=== PATIENT | male | born 1975 | race Caucasian/White ===

== ENCOUNTER 2021-03-05 15:55 | Inpatient (IN) | payer OTHER, SELFPAY ==
[2021-03-05 16:19] VITALS: BP 135/99; PULSE 118; RESP 18; TEMP 36.7; O2SAT 98; BMI 29.7
--- NOTE | 2021-03-05 16:47 | ED.PSYCH ---
HPI - Psych General Chief Complaint: Psychiatric Symptoms <FLOYD Dacosta Last Filed: 03/05/21 17:53> Stated Complaint: crisis <FLOYD Dacosta Last Filed: 03/05/21 17:53> Time Seen by Provider: 03/05/21 16:46 <FLOYD Dacosta Last Filed: 03/05/21 17:53> Source: patient <FLOYD Dacosta Last Filed: 03/05/21 17:53> Mode of arrival: ambulatory <FLOYD Dacosta Last Filed: 03/05/21 17:53> History of Present Illness HPI Narrative: 45-year-old male with a past medical history of diabetes, presenting to the ED complaining of increased depression, visual and auditory hallucinations x a couple weeks. Admits has been medication noncompliant x over a year. Patient admits to using cocaine, heroin, and drinking alcohol. Friend to accompany patient to ED reports patient made self-harming statements. Patient reports lives at home with girlfriend and children, having issues/hostility at home. Denies SI/HI, or voices telling him to do anything, fever, chills, cough, chest pain, shortness breath, abdominal pain, nausea/vomiting <FLOYD Dacosta Last Filed: 03/05/21 17:53> MD complaint: substance abuse and hallucinations <FLOYD Dacosta Last Filed: 03/05/21 17:53> Related Data Home Medications: Home Medications Medication Instructions Recorded Confirmed No Known Home Meds 03/05/21 03/05/21 <FLOYD Dacosta Last Filed: 03/05/21 17:53> Allergies/Adverse Reactions: Allergies Allergy/AdvReac Type Severity Reaction Status Date / Time No Known Allergies Allergy Verified 03/05/21 16:25 <FLOYD Dacosta Last Filed: 03/05/21 17:53> Review of Systems Review of Systems: Constitutional: No Fever, No Chills, No Fatigue, No Malaise Cardiovascular: No Chest Pain, No SOB, No Palpitations Respiratory: No Cough, No Sputum, No Dyspnea Gastrointestinal: No Nausea, No Vomiting, No Diarrhea, No Constipation, No Abdominal pain Genitourinary: No Dysuria, No Urinary Frequency, No Hematuria Musculoskeletal: No joint pain, No Myalgias, No Joint Swelling Skin: No Skin Lesions, No rash Neuro: No Weakness, No Numbness, No Headache Psych: No Anxiety/Panic, + Depression, No SI/HI, +AH & VH, + Social Issues <FLOYD Dacosta - Last Filed: 03/05/21 17:53> Yes all other systems are reviewed and are negative <FLOYD Dacosta - Last Filed: 03/05/21 17:53> [facility] Past Medical History Attestation statement: The following information was validated with the patient. <FLOYD Dacosta - Last Filed: 03/05/21 17:53> Medical History: Medical History (Updated 03/05/21 @ 17:53 by FLOYD Dacosta) Diabetes <FLOYD Dacosta - Last Filed: 03/05/21 17:53> Social History Social History: Social History Alcohol intake: current Alcohol intake frequency: a few times a week Alcohol type: beer Smoking Status: Current every day smoker Smoked in Last 30 Days: Yes Use of substances other than those prescribed or required for medical reasons: Yes Substance Use Type: Crack/Cocaine and Heroin Substance Use Frequency: Chronic Longstanding Last Used Substance: Hours (ago) Advance Directives: No Advance Directives Information Provided: Yes <FLOYD Dacosta - Last Filed: 03/05/21 17:53> Physical Exam Vital Signs: Vital Signs: Last Vital Signs Temp 98.2 F 03/05/21 16:53 Pulse 129 H 03/05/21 16:53 Resp 14 03/05/21 16:53 BP 150/93 H 03/05/21 16:53 Pulse Ox 99 03/05/21 16:53 Body Mass Index 29.7 <FLOYD Dacosta - Last Filed: 03/05/21 17:53> Vital Signs: Last Vital Signs Temp 98.2 F 03/05/21 16:53 Pulse 129 H 03/05/21 16:53 Resp 14 03/05/21 16:53 BP 150/93 H 03/05/21 16:53 Pulse Ox 99 03/05/21 16:53 Body Mass Index 29.7 <Samina Chi PA-C - Last Filed: 03/05/21 18:58> Const: General: cooperative, healthy appearing, comfortable and no acute distress <Lorenza Andrade [facility] Last Filed: 03/05/21 17:53> Orientation/consciousness: patient oriented x3 <Lorenza Andrade [place] - Last Filed: 03/05/21 17:53> Limitations: no limitations <Lorenza Andrade [facility] Last Filed: 03/05/21 17:53> HENMT: Head: Yes normal to inspection and Yes atraumatic <Lorenza Andrade [place] - Last Filed: 03/05/21 17:53> Ears: hearing grossly normal bilaterally <Lorenza Andrade [place] - Last Filed: 03/05/21 17:53> General nose exam: Normal external nose present <Lorenza Andrade [facility] Last Filed: 03/05/21 17:53> Face and sinus: Yes normal facial exam <Lorenza Andrade [facility] Last Filed: 03/05/21 17:53> Eyes: General: appearance normal, both eyes and all related structures <Lorenza Andrade [place] - Last Filed: 03/05/21 17:53> Pupils: Equal, round and reactive pupils present <Lorenza Andrade [facility] Last Filed: 03/05/21 17:53> EOM: EOMs intact bilaterally <Lorenza Andrade [facility] Last Filed: 03/05/21 17:53> Neck: Neck: Yes normal visual inspection and Yes no meningeal signs <Lorenza Andrade [facility] Last Filed: 03/05/21 17:53> Chest: Chest palpation & inspection: normal inspection of the chest <Lorenza Andrade [facility] Last Filed: 03/05/21 17:53> Resp: Effort & Inspection: normal respiratory effort <Lorenza Andrade [facility] Last Filed: 03/05/21 17:53> Auscultation: clear to auscultation bilaterally, no rales, no rhonchi and no wheezes <Lorenza Andrade [facility] Last Filed: 03/05/21 17:53> Cardio: Rate: regular rate <Lorenza Andrade [facility] Last Filed: 03/05/21 17:53> Heart sounds: S1 normal heart sound present and S2 normal heart sound present <Lorenza Andrade [place] - Last Filed: 03/05/21 17:53> GI: Inspection: Yes normal to inspection <Lorenza Andrade [facility] Last Filed: 03/05/21 17:53> Palpation (GI): Soft to palpation, nontender, no guarding and not rigid <Lorenza Andrade [facility] Last Filed: 03/05/21 17:53> Skin: Rashes: no rashes <Lorenza Andrade [facility] Last Filed: 03/05/21 17:53> Wounds: no wounds <Lorenza Andrade [facility] Last Filed: 03/05/21 17:53> Neuro: General: patient oriented x3, gait normal, tone normal, moves all extremities and no meningeal signs <Lorenza Andrade [facility] Last Filed: 03/05/21 17:53> Cranial nerves: Yes Equal, round and reactive pupils present <Lorenza Andrade [facility] Last Filed: 03/05/21 17:53> Gait exam (Neuro): Normal gait present <Lorenza Andrade [facility] Last Filed: 03/05/21 17:53> Extrem: General: Yes normal to inspection <Lorenza Andrade [facility] Last Filed: 03/05/21 17:53> Psych: Attitude: cooperative <Lorenza Andrade [facility] Last Filed: 03/05/21 17:53> Thought content: suicidality, no homicidality, Hallucination(s) present and Depressive thoughts present <Lorenza Andrade [facility] Last Filed: 03/05/21 17:53> Insight: Good insight present (Psych) <Lorenza Andrade [facility] Last Filed: 03/05/21 17:53> Judgement: Good judgement present (Psych) <Lorenza Andrade [facility] Last Filed: 03/05/21 17:53> Course Course Course Narrative: -POC 245 >> will push p.o. fluids. Patient reports noncompliance with metformin and glipizide, will restart metformin and hold glipizide for now --1800--ED care transferred to [facility] pending labs and BHN consult <Lorenza Andrade [facility] Last Filed: 03/05/21 17:53> Reevaluation(s) Reevaluation #1: Acetone negative, salicylates negative, ethyl alcohol negative, glucose 275, creatinine 1.50. Will continue to push fluids an add glipizide as patient typically takes this medication at home. <Samina Chi PA-C - Last Filed: 03/05/21 18:58> Time: 18:56 <Samina Chi PA-C - Last Filed: 03/05/21 18:58> MDM - Psych MDM Narrative Medical decision making narrative: 45-year-old male with a past medical history of diabetes, presenting to the ED complaining of increased depression, visual and auditory hallucinations x a couple weeks. Admits has been medication noncompliant x over a year. Patient admits to using cocaine, heroin, and drinking alcohol. On exam tachycardic, NAD, cooperative, abdomen soft/nontender, nontoxic appearing. Concern for medication noncompliance vs metabolic abnormalities including hyperglycemia/DKA vs psychiatric illness. Plan: EKG, labs, UA, OCHOA, push p.o. fluids <FLOYD Dacosta Last Filed: 03/05/21 17:53> Medical Records Attestation: I reviewed the patient's medical records. <FLOYD Dacosta Last Filed: 03/05/21 17:53> Lab Data Attestation: I reviewed the patient's lab results. <FLOYD Dacosta Last Filed: 03/05/21 17:53> Result diagrams: : 03/05/21 17:53 03/05/21 17:53 <FLOYD Dacosta - Last Filed: 03/05/21 17:53> Labs: Lab Results 03/05/21 03/05/21 03/05/21 Range/Units 17:13 17:17 17:36 WBC (4.8-10.8) X10*3/uL RBC (4.60-5.80) X10*6/uL Hgb (14.0-18.0) g/dl Hct (42-52) % MCV (80-98) fL MCH (27.0-33.0) pg MCHC (31.0-36.0) g/dl RDW (11.0-16.0) % Plt Count (160-400) X10*3/uL MPV (9.4-12.4) fL Immature Gran % (Auto) (0.0-0.4) % Neut % (Auto) (45-73) % Lymph % (Auto) (20-40) % Shelby % (Auto) (2-11) % Eos % (Auto) (0-4) % Baso % (Auto) (0-2) % Lymph # (Auto) (1.2-4.9) X10*3/uL Shelby # (Auto) (0.1-1.2) X10*3/uL Eos # (Auto) (0.0-0.4) X10*3/uL Baso # (Auto) (0.0-0.2) X10*3/uL Abs Immat Gran (auto) (0.00-0.03) X10*3/uL Absolute Neuts (auto) (2.0-8.3) X10*3/uL Absolute Nucleated RBC (0.0-0.012) X10*3/uL Nucleated RBC % (auto) (0.0-0.2) /100WBC Hold Blue Top Sodium (135-145) mmol/L Potassium (3.3-5.1) mmol/L Chloride (96-108) mmol/L Carbon Dioxide (22-29) mmol/L Anion Gap (12-20) BUN (9-16) mg/dL Creatinine (0.5-1.4) mg/dL Estim Creat Clear Calc Estimated GFR POC Glucose 245 H (60-115) mg/dL Random Glucose (60-115) mg/dL Calcium (8.4-10.2) mg/dL Magnesium (1.6-2.6) mg/dL Total Bilirubin (0.0-1.0) mg/dL Direct Bilirubin (0.0-0.5) mg/dL AST (5-37) U/L ALT (0-40) U/L Alkaline Phosphatase (39-117) U/L Total Protein (6.5-8.0) g/dL Albumin (3.5-5.0) g/dL Lipase (8-78) U/L Urine Color YELLOW Urine Appearance CLEAR Urine pH 6.5 (5.0-8.0) Ur Specific [place] 1.025 (1.005-1.025) Urine Protein 1+ H (NEG-TRACE) MG/DL Urine Glucose (UA) 500 H (NEG) MG/DL Urine Ketones 5 (NEG) MG/DL Urine Blood NEG (NEG) Urine Nitrite NEG (NEG) Ur Leukocyte Esterase NEG (NEG) Urine RBC 0 (0) /HPF Urine WBC 0 (0-4) /HPF Ur Squamous Epith Cells TRACE /LPF Urine Bacteria TRACE /LPF Urine Sperm NOTED Salicylates (15-30) mg/dL Urine Opiates Screen (Not Detect) Acetaminophen (<30) mcg/mL Ur Barbiturates Screen (Not Detect) Ur Phencyclidine Scrn (Not Detect) Ur Amphetamines Screen (Not Detect) U Benzodiazepines Scrn (Not Detect) Urine Cocaine Screen (Not Detect) U Marijuana (THC) Screen (Not Detect) Ethyl Alcohol mg/dL Acetone, Qual (Negative) COVID-19 (DANIELLE) Negative (Negative) COVID-19 Clin Com See Note 03/05/21 03/05/21 03/05/21 Range/Units 17:36 17:53 17:53 WBC 10.7 (4.8-10.8) X10*3/uL RBC 5.05 (4.60-5.80) X10*6/uL Hgb 13.7 L (14.0-18.0) g/dl Hct 40.1 L (42-52) % MCV 79.4 L (80-98) fL MCH 27.1 (27.0-33.0) pg MCHC 34.2 (31.0-36.0) g/dl RDW 13.1 (11.0-16.0) % Plt Count 421 H (160-400) X10*3/uL MPV 9.9 (9.4-12.4) fL Immature Gran % (Auto) 0.3 (0.0-0.4) % Neut % (Auto) 73.9 H (45-73) % Lymph % (Auto) 19.2 L (20-40) % Shelby % (Auto) 6.2 (2-11) % Eos % (Auto) 0.1 (0-4) % Baso % (Auto) 0.3 (0-2) % Lymph # (Auto) 2.1 (1.2-4.9) X10*3/uL [place] # (Auto) 0.7 (0.1-1.2) X10*3/uL Eos # (Auto) 0.0 (0.0-0.4) X10*3/uL Baso # (Auto) 0.0 (0.0-0.2) X10*3/uL Abs Immat Gran (auto) 0.03 (0.00-0.03) X10*3/uL Absolute Neuts (auto) 7.9 (2.0-8.3) X10*3/uL Absolute Nucleated RBC 0.000 (0.0-0.012) X10*3/uL Nucleated RBC % (auto) 0.0 (0.0-0.2) /100WBC Hold Blue Top Sodium 141 (135-145) mmol/L Potassium 4.2 (3.3-5.1) mmol/L Chloride 105 (96-108) mmol/L Carbon Dioxide 26 (22-29) mmol/L Anion Gap 14 (12-20) BUN 15 (9-16) mg/dL Creatinine 1.50 H (0.5-1.4) mg/dL Estim Creat Clear Calc 70.0 Estimated GFR 50 POC Glucose (60-115) mg/dL Random Glucose 275 H (60-115) mg/dL Calcium 9.8 (8.4-10.2) mg/dL Magnesium 2.2 (1.6-2.6) mg/dL Total Bilirubin 0.3 (0.0-1.0) mg/dL Direct Bilirubin < 0.2 (0.0-0.5) mg/dL AST 15 (5-37) U/L ALT 10 (0-40) U/L Alkaline Phosphatase 74 (39-117) U/L Total Protein 8.1 H (6.5-8.0) g/dL Albumin 4.4 (3.5-5.0) g/dL Lipase 67 (8-78) U/L Urine Color Urine Appearance Urine pH (5.0-8.0) Ur Specific [place] (1.005-1.025) Urine Protein (NEG-TRACE) MG/DL Urine Glucose (UA) (NEG) MG/DL Urine Ketones (NEG) MG/DL Urine Blood (NEG) Urine Nitrite (NEG) Ur Leukocyte Esterase (NEG) Urine RBC (0) /HPF Urine WBC (0-4) /HPF Ur Squamous Epith Cells /LPF Urine Bacteria /LPF Urine Sperm Salicylates < 5.0 L (15-30) mg/dL Urine Opiates Screen Not Detected (Not Detect) Acetaminophen < 1 (<30) mcg/mL Ur Barbiturates Screen Not Detected (Not Detect) Ur Phencyclidine Scrn Not Detected (Not Detect) Ur Amphetamines Screen Not Detected (Not Detect) U Benzodiazepines Scrn Not Detected (Not Detect) Urine Cocaine Screen POSITIVE H (Not Detect) U Marijuana (THC) Screen Not Detected (Not Detect) Ethyl Alcohol mg/dL Acetone, Qual (Negative) COVID-19 (DANIELLE) (Negative) COVID-19 Clin Com 03/05/21 03/05/21 03/05/21 Range/Units 17:53 17:53 17:54 WBC (4.8-10.8) X10*3/uL RBC (4.60-5.80) X10*6/uL Hgb (14.0-18.0) g/dl Hct (42-52) % MCV (80-98) fL MCH (27.0-33.0) pg MCHC (31.0-36.0) g/dl RDW (11.0-16.0) % Plt Count (160-400) X10*3/uL MPV (9.4-12.4) fL Immature Gran % (Auto) (0.0-0.4) % Neut % (Auto) (45-73) % Lymph % (Auto) (20-40) % [place] % (Auto) (2-11) % Eos % (Auto) (0-4) % Baso % (Auto) (0-2) % Lymph # (Auto) (1.2-4.9) X10*3/uL [place] # (Auto) (0.1-1.2) X10*3/uL Eos # (Auto) (0.0-0.4) X10*3/uL Baso # (Auto) (0.0-0.2) X10*3/uL Abs Immat Gran (auto) (0.00-0.03) X10*3/uL Absolute Neuts (auto) (2.0-8.3) X10*3/uL Absolute Nucleated RBC (0.0-0.012) X10*3/uL Nucleated RBC % (auto) (0.0-0.2) /100WBC Hold Blue Top SEE NOTE Sodium (135-145) mmol/L Potassium (3.3-5.1) mmol/L Chloride (96-108) mmol/L Carbon Dioxide (22-29) mmol/L Anion Gap (12-20) BUN (9-16) mg/dL Creatinine (0.5-1.4) mg/dL Estim Creat Clear Calc Estimated GFR POC Glucose (60-115) mg/dL Random Glucose (60-115) mg/dL Calcium (8.4-10.2) mg/dL Magnesium (1.6-2.6) mg/dL Total Bilirubin (0.0-1.0) mg/dL Direct Bilirubin (0.0-0.5) mg/dL AST (5-37) U/L ALT (0-40) U/L Alkaline Phosphatase (39-117) U/L Total Protein (6.5-8.0) g/dL Albumin (3.5-5.0) g/dL Lipase (8-78) U/L Urine Color Urine Appearance Urine pH (5.0-8.0) Ur Specific [place] (1.005-1.025) Urine Protein (NEG-TRACE) MG/DL Urine Glucose (UA) (NEG) MG/DL Urine Ketones (NEG) MG/DL Urine Blood (NEG) Urine Nitrite (NEG) Ur Leukocyte Esterase (NEG) Urine RBC (0) /HPF Urine WBC (0-4) /HPF Ur Squamous Epith Cells /LPF Urine Bacteria /LPF Urine Sperm Salicylates (15-30) mg/dL Urine Opiates Screen (Not Detect) Acetaminophen (<30) mcg/mL Ur Barbiturates Screen (Not Detect) Ur Phencyclidine Scrn (Not Detect) Ur Amphetamines Screen (Not Detect) U Benzodiazepines Scrn (Not Detect) Urine Cocaine Screen (Not Detect) U Marijuana (THC) Screen (Not Detect) Ethyl Alcohol < 10 mg/dL Acetone, Qual Negative (Negative) COVID-19 (DANIELLE) (Negative) COVID-19 Clin Com <FLOYD Dacosta - Last Filed: 03/05/21 17:53> Lab Results 03/05/21 03/05/21 03/05/21 Range/Units 17:13 17:17 17:36 WBC (4.8-10.8) X10*3/uL RBC (4.60-5.80) X10*6/uL Hgb (14.0-18.0) g/dl Hct (42-52) % MCV (80-98) fL MCH (27.0-33.0) pg MCHC (31.0-36.0) g/dl RDW (11.0-16.0) % Plt Count (160-400) X10*3/uL MPV (9.4-12.4) fL Immature Gran % (Auto) (0.0-0.4) % Neut % (Auto) (45-73) % Lymph % (Auto) (20-40) % Shelby % (Auto) (2-11) % Eos % (Auto) (0-4) % Baso % (Auto) (0-2) % Lymph # (Auto) (1.2-4.9) X10*3/uL [place] # (Auto) (0.1-1.2) X10*3/uL Eos # (Auto) (0.0-0.4) X10*3/uL Baso # (Auto) (0.0-0.2) X10*3/uL Abs Immat Gran (auto) (0.00-0.03) X10*3/uL Absolute Neuts (auto) (2.0-8.3) X10*3/uL Absolute Nucleated RBC (0.0-0.012) X10*3/uL Nucleated RBC % (auto) (0.0-0.2) /100WBC Hold Blue Top Sodium (135-145) mmol/L Potassium (3.3-5.1) mmol/L Chloride (96-108) mmol/L Carbon Dioxide (22-29) mmol/L Anion Gap (12-20) BUN (9-16) mg/dL Creatinine (0.5-1.4) mg/dL Estim Creat Clear Calc Estimated GFR POC Glucose 245 H (60-115) mg/dL Random Glucose (60-115) mg/dL Calcium (8.4-10.2) mg/dL Magnesium (1.6-2.6) mg/dL Total Bilirubin (0.0-1.0) mg/dL Direct Bilirubin (0.0-0.5) mg/dL AST (5-37) U/L ALT (0-40) U/L Alkaline Phosphatase (39-117) U/L Total Protein (6.5-8.0) g/dL Albumin (3.5-5.0) g/dL Lipase (8-78) U/L Urine Color YELLOW Urine Appearance CLEAR Urine pH 6.5 (5.0-8.0) Ur Specific [place] 1.025 (1.005-1.025) Urine Protein 1+ H (NEG-TRACE) MG/DL Urine Glucose (UA) 500 H (NEG) MG/DL Urine Ketones 5 (NEG) MG/DL Urine Blood NEG (NEG) Urine Nitrite NEG (NEG) Ur Leukocyte Esterase NEG (NEG) Urine RBC 0 (0) /HPF Urine WBC 0 (0-4) /HPF Ur Squamous Epith Cells TRACE /LPF Urine Bacteria TRACE /LPF Urine Sperm NOTED Salicylates (15-30) mg/dL Urine Opiates Screen (Not Detect) Acetaminophen (<30) mcg/mL Ur Barbiturates Screen (Not Detect) Ur Phencyclidine Scrn (Not Detect) Ur Amphetamines Screen (Not Detect) U Benzodiazepines Scrn (Not Detect) Urine Cocaine Screen (Not Detect) U Marijuana (THC) Screen (Not Detect) Ethyl Alcohol mg/dL Acetone, Qual (Negative) COVID-19 (DANIELLE) Negative (Negative) COVID-19 Clin Com See Note 03/05/21 03/05/21 03/05/21 Range/Units 17:36 17:53 17:53 WBC 10.7 (4.8-10.8) X10*3/uL RBC 5.05 (4.60-5.80) X10*6/uL Hgb 13.7 L (14.0-18.0) g/dl Hct 40.1 L (42-52) % MCV 79.4 L (80-98) fL MCH 27.1 (27.0-33.0) pg MCHC 34.2 (31.0-36.0) g/dl RDW 13.1 (11.0-16.0) % Plt Count 421 H (160-400) X10*3/uL MPV 9.9 (9.4-12.4) fL Immature Gran % (Auto) 0.3 (0.0-0.4) % Neut % (Auto) 73.9 H (45-73) % Lymph % (Auto) 19.2 L (20-40) % Shelby % (Auto) 6.2 (2-11) % Eos % (Auto) 0.1 (0-4) % Baso % (Auto) 0.3 (0-2) % Lymph # (Auto) 2.1 (1.2-4.9) X10*3/uL [place] # (Auto) 0.7 (0.1-1.2) X10*3/uL Eos # (Auto) 0.0 (0.0-0.4) X10*3/uL Baso # (Auto) 0.0 (0.0-0.2) X10*3/uL Abs Immat Gran (auto) 0.03 (0.00-0.03) X10*3/uL Absolute Neuts (auto) 7.9 (2.0-8.3) X10*3/uL Absolute Nucleated RBC 0.000 (0.0-0.012) X10*3/uL Nucleated RBC % (auto) 0.0 (0.0-0.2) /100WBC Hold Blue Top Sodium 141 (135-145) mmol/L Potassium 4.2 (3.3-5.1) mmol/L Chloride 105 (96-108) mmol/L Carbon Dioxide 26 (22-29) mmol/L Anion Gap 14 (12-20) BUN 15 (9-16) mg/dL Creatinine 1.50 H (0.5-1.4) mg/dL Estim Creat Clear Calc 70.0 Estimated GFR 50 POC Glucose (60-115) mg/dL Random Glucose 275 H (60-115) mg/dL Calcium 9.8 (8.4-10.2) mg/dL Magnesium 2.2 (1.6-2.6) mg/dL Total Bilirubin 0.3 (0.0-1.0) mg/dL Direct Bilirubin < 0.2 (0.0-0.5) mg/dL AST 15 (5-37) U/L ALT 10 (0-40) U/L Alkaline Phosphatase 74 (39-117) U/L Total Protein 8.1 H (6.5-8.0) g/dL Albumin 4.4 (3.5-5.0) g/dL Lipase 67 (8-78) U/L Urine Color Urine Appearance Urine pH (5.0-8.0) Ur Specific [place] (1.005-1.025) Urine Protein (NEG-TRACE) MG/DL Urine Glucose (UA) (NEG) MG/DL Urine Ketones (NEG) MG/DL Urine Blood (NEG) Urine Nitrite (NEG) Ur Leukocyte Esterase (NEG) Urine RBC (0) /HPF Urine WBC (0-4) /HPF Ur Squamous Epith Cells /LPF Urine Bacteria /LPF Urine Sperm Salicylates < 5.0 L (15-30) mg/dL Urine Opiates Screen Not Detected (Not Detect) Acetaminophen < 1 (<30) mcg/mL Ur Barbiturates Screen Not Detected (Not Detect) Ur Phencyclidine Scrn Not Detected (Not Detect) Ur Amphetamines Screen Not Detected (Not Detect) U Benzodiazepines Scrn Not Detected (Not Detect) Urine Cocaine Screen POSITIVE H (Not Detect) U Marijuana (THC) Screen Not Detected (Not Detect) Ethyl Alcohol mg/dL Acetone, Qual (Negative) COVID-19 (DANIELLE) (Negative) COVID-19 Clin Com 03/05/21 03/05/21 03/05/21 Range/Units 17:53 17:53 17:54 WBC (4.8-10.8) X10*3/uL RBC (4.60-5.80) X10*6/uL Hgb (14.0-18.0) g/dl Hct (42-52) % MCV (80-98) fL MCH (27.0-33.0) pg MCHC (31.0-36.0) g/dl RDW (11.0-16.0) % Plt Count (160-400) X10*3/uL MPV (9.4-12.4) fL Immature Gran % (Auto) (0.0-0.4) % Neut % (Auto) (45-73) % Lymph % (Auto) (20-40) % [place] % (Auto) (2-11) % Eos % (Auto) (0-4) % Baso % (Auto) (0-2) % Lymph # (Auto) (1.2-4.9) X10*3/uL [place] # (Auto) (0.1-1.2) X10*3/uL Eos # (Auto) (0.0-0.4) X10*3/uL Baso # (Auto) (0.0-0.2) X10*3/uL Abs Immat Gran (auto) (0.00-0.03) X10*3/uL Absolute Neuts (auto) (2.0-8.3) X10*3/uL Absolute Nucleated RBC (0.0-0.012) X10*3/uL Nucleated RBC % (auto) (0.0-0.2) /100WBC Hold Blue Top SEE NOTE Sodium (135-145) mmol/L Potassium (3.3-5.1) mmol/L Chloride (96-108) mmol/L Carbon Dioxide (22-29) mmol/L Anion Gap (12-20) BUN (9-16) mg/dL Creatinine (0.5-1.4) mg/dL Estim Creat Clear Calc Estimated GFR POC Glucose (60-115) mg/dL Random Glucose (60-115) mg/dL Calcium (8.4-10.2) mg/dL Magnesium (1.6-2.6) mg/dL Total Bilirubin (0.0-1.0) mg/dL Direct Bilirubin (0.0-0.5) mg/dL AST (5-37) U/L ALT (0-40) U/L Alkaline Phosphatase (39-117) U/L Total Protein (6.5-8.0) g/dL Albumin (3.5-5.0) g/dL Lipase (8-78) U/L Urine Color Urine Appearance Urine pH (5.0-8.0) Ur Specific [place] (1.005-1.025) Urine Protein (NEG-TRACE) MG/DL Urine Glucose (UA) (NEG) MG/DL Urine Ketones (NEG) MG/DL Urine Blood (NEG) Urine Nitrite (NEG) Ur Leukocyte Esterase (NEG) Urine RBC (0) /HPF Urine WBC (0-4) /HPF Ur Squamous Epith Cells /LPF Urine Bacteria /LPF Urine Sperm Salicylates (15-30) mg/dL Urine Opiates Screen (Not Detect) Acetaminophen (<30) mcg/mL Ur Barbiturates Screen (Not Detect) Ur Phencyclidine Scrn (Not Detect) Ur Amphetamines Screen (Not Detect) U Benzodiazepines Scrn (Not Detect) Urine Cocaine Screen (Not Detect) U Marijuana (THC) Screen (Not Detect) Ethyl Alcohol < 10 mg/dL Acetone, Qual Negative (Negative) COVID-19 (DANIELLE) (Negative) COVID-19 Clin Com <Samina Chi PA-C - Last Filed: 03/05/21 18:58> ECG Data Attestation: I personally reviewed and interpreted this ECG as follows: <FLOYD Dacosta - Last Filed: 03/05/21 17:53> ECG interpretation date: 03/05/21 <FLOYD Dacosta - Last Filed: 03/05/21 17:53> ECG interpretation time: 17:30 <FLOYD Dacosta - Last Filed: 03/05/21 17:53> Interpretation: EKG normal sinus rhythm with a rate of 96. Nonischemic/no STEMI. QTC 424 <FLOYD Dacosta - Last Filed: 03/05/21 17:53> Discharge Plan Discharge Clinical Impression: Hallucinations, Depression, Acute hyperglycemia <FLOYD Dacosta - Last Filed: 03/05/21 17:53> Prescriptions: No Action No Known Home Meds RF: 0 <FLOYD Dacosta - Last Filed: 03/05/21 17:53>
[2021-03-05 16:53] VITALS: BP 150/93; PULSE 129; RESP 14; TEMP 36.8; O2SAT 99
--- NOTE | 2021-03-05 17:00 | ECG_ITS ---
Test Reason : MEDICAL CLEARANCE Blood Pressure : / mmHG Vent. Rate : 096 BPM Atrial Rate : 096 BPM P-R Int : 182 ms QRS Dur : 074 ms QT Int : 336 ms P-R-T Axes : 077 059 032 degrees QTc Int : 424 ms Normal sinus rhythm Normal ECG No previous ECGs available Referred By: Lorenza Andrade Electronically Signed By:MIRLANDE TODD MD
[2021-03-05 17:21] LABS: Glucose, Whole Blood 245 mg/dL (60-115)
[2021-03-05 17:49] LABS: Glucose Urine UA 500 MG/DL (NEG); Leukocyte Esterase Urine NEG (NEG); Nitrite Urine NEG (NEG); PH 6.5 (5.0-8.0); Specific Gravity - Urine 1.025 (1.005-1.025); Urine Blood NEG (NEG); Urine Ketones 5 MG/DL (NEG); Urine Protein 1+ MG/DL (NEG-TRACE)
[2021-03-05 17:50] LABS: Appearance Urine CLEAR; Color Urine YELLOW
[2021-03-05 17:54] LABS: COVID-19 Test Negative (Negative)
[2021-03-05 18:01] LABS: MANUAL DIFF FLAG NO
[2021-03-05 18:03] LABS: Bacteria Urine TRACE /LPF; RBC Urine 0 /HPF (0); Sperm Urine NOTED; Squamous Epithelial Cell Urine TRACE /LPF; WBC Urine 0 /HPF (0-4)
[2021-03-05 18:07] LABS: Amphetamine Screen Urine Not Detected (Not Detect); Barbiturates, Urine Not Detected (Not Detect); Benzodiazepines Screen Urine Not Detected (Not Detect); Cannabinoid Screen Urine Not Detected (Not Detect); Cocaine Screen Urine POSITIVE (Not Detect); Opiate Screen Urine Not Detected (Not Detect); Phencyclidine Screen Urine Not Detected (Not Detect)
[2021-03-05 18:20] LABS: Basophils Percent Auto 0.3 % (0-2); Eosinophils Percent Auto 0.1 % (0-4); Hematocrit 40.1 % (42-52); Hemoglobin 13.7 g/dl (14.0-18.0); Imm Gran Abs Auto 0.03 X10*3/uL (0.00-0.03); Imm Gran Pct Auto 0.3 % (0.0-0.4); Lymphocytes Absolute Auto 2.1 X10*3/uL (1.2-4.9); Lymphocytes Percent Auto 19.2 % (20-40); Mean Corpuscular HGB Conc 34.2 g/dl (31.0-36.0); Mean Corpuscular Hemoglobin 27.1 pg (27.0-33.0); Mean Corpuscular Volume 79.4 fL (80-98); Mean Platelet Volume 9.9 fL (9.4-12.4); Monocytes Absolute Auto 0.7 X10*3/uL (0.1-1.2); Monocytes Percent Auto 6.2 % (2-11); Neutrophils Absolute Auto 7.9 X10*3/uL (2.0-8.3); Neutrophils Percent Auto 73.9 % (45-73); Platelet Count 421 X10*3/uL (160-400); Red Blood Count 5.05 X10*6/uL (4.60-5.80); Red Cell Distribution Width 13.1 % (11.0-16.0); White Blood Count 10.7 X10*3/uL (4.8-10.8)
[2021-03-05 18:26] LABS: Acetone, serum QL Negative (Negative); Ethanol < 10 mg/dL
[2021-03-05 18:32] LABS: Acetaminophen LAB < 1 mcg/mL (<30); Alanine Aminotransferase 10 U/L (0-40); Albumin Level 4.4 g/dL (3.5-5.0); Alkaline Phosphatase 74 U/L (39-117); Anion Gap 14 (12-20); Aspartate Amino Transferase 15 U/L (5-37); Bilirubin Direct < 0.2 mg/dL (0.0-0.5); Bilirubin Total 0.3 mg/dL (0.0-1.0); Blood Urea Nitrogen 15 mg/dL (9-16); Calcium 9.8 mg/dL (8.4-10.2); Carbon Dioxide 26 mmol/L (22-29); Chloride 105 mmol/L (96-108); Estimated Glomerular Filt Rate 50; Glucose Random 275 mg/dL (60-115); Lipase 67 U/L (8-78); Magnesium 2.2 mg/dL (1.6-2.6); Potassium 4.2 mmol/L (3.3-5.1); Sodium 141 mmol/L (135-145); Total Protein 8.1 g/dL (6.5-8.0)
[2021-03-05 18:44] LABS: Salicylate < 5.0 mg/dL (15-30)
[2021-03-05] MEDS: metFORMIN HCl 1,000 MG TABLET 1000 MG PO (21:52)
--- NOTE | 2021-03-05 22:03 | PC.NURSE ---
Per provider administered Metformin 100 mg, per [facility] no clinician available until tomorrow, care team made aware may see the patient, patient denied ditress, will continue to monitor
[2021-03-06 06:09] LABS: Glucose, Whole Blood 179 mg/dL (60-115)
--- NOTE | 2021-03-06 06:50 | PC.NURSE ---
received report from prior shift patient appears to remain asleep with even unlabored breaths, appears in no distress
[2021-03-06] MEDS: glipiZIDE 5 MG TABLET 2.5 MG PO (07:26)
[2021-03-06] MEDS: metFORMIN HCl 1,000 MG TABLET 1000 MG PO ×2 (07:26→18:45)
[2021-03-06 07:28] VITALS: BP 119/74; PULSE 87; RESP 15; TEMP 36.6; O2SAT 96
[2021-03-06 11:34] LABS: Glucose, Whole Blood 60 mg/dL (60-115)
[2021-03-06 18:35] VITALS: BMI 28.3
[2021-03-06 18:37] VITALS: BP 121/85; PULSE 75; TEMP 35.3; O2SAT 100
--- NOTE | 2021-03-06 18:40 | PC.ADMIT ---
Addendum entered by Adriana Campos RN 03/06/21 18:57: 0btained. Original Note: 45 year old male admitted to the [place] for behavioral health as a CV at 1715 following referral from [facility] and ED. First admission here. Patient off meds for 18 months and gradual decompensation over that period. Denies ah/vh appears to be resonding to internal stimuli. Patient, girlfriend reports patient has history of agression following discontinuation of meds. Patient presented alert and oriented stating he wanted help resuming medication regimen. He also stated he has anxiety due to relationship with significant other and recent loss of job. He denied cocaine use, OCHOA positive for cocaine.Patient was cooperative during assessment but became agitated with all the questions and was concerned he was going to be held here against his will. Telephone intake indicated no medical problems . Patient indicated he has diabetes. POC prior to admission to unit was 60. Patient eating dinner in room on 15 minute safety checks . Treatment plan inititated, nurse to nurse done and admission ordered obtaines.
[2021-03-06] MEDS: hydrOXYzine HCL 25 MG TABLET PO (19:03)
[2021-03-06] MEDS: risperiDONE 1 MG TABLET PO (19:03)
--- NOTE | 2021-03-06 19:05 | PC.NURSE ---
patient submitted 3 day notice. he is paranoid and upset ''my mind is being played with'' ''I was supposed to be given medication and then leave'' given hydroxyzine prn and given hs risperdal early. psychiatrist is aware. awaiting additional orders. he is calling s.o. on the phone. security on unit. he is accepting oral medications.
[2021-03-06] MEDS: OLANZapine ODT 10 MG TAB.RAPDIS TRANSLINGU (19:22)
[2021-03-07 06:00] VITALS: BP 100/56; PULSE 69; RESP 20; TEMP 36.3; O2SAT 95
[2021-03-07 06:54] LABS: Glucose, Whole Blood 138 mg/dL (60-115)
[2021-03-07] MEDS: metFORMIN HCl 1,000 MG TABLET 1000 MG PO ×2 (08:37→17:53)
[2021-03-07] MEDS: risperiDONE 1 MG TABLET PO (08:37)
[2021-03-07] MEDS: glipiZIDE 5 MG TABLET 2.5 MG PO (08:37)
[2021-03-07] MEDS: Clotrimazole 1 % Cream 15 GM TUBE 1 APPL TOPICAL (10:22)
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
--- NOTE | 2021-03-07 14:04 | MHC.CLN ---
RE: CONSULT HT 70 , WT 207# IBW 166#+/-10% UBW 220# PT IS 125% IBW INDICATES OBESE PT REPORTED 10# WT LOSS RECENTLY TRIGGERS FOR 6% SIG WT LOSS ENN: 83KG CMW, 1900KCALS, 83G PROTEIN, 2400CC H20 LABS: 03/05/21 CREAT 1.5, RG 275, ALBUMIN WNL MEDS; GLUCOPHAGE AND GLIPIZIDE DIET RX: REGULAR-PT MAY BENEFIT FROM 2000DM DIET R/T HX DM PT STRUGGLING WITH HOMELESSNESS AND OFF PSYCH MEDS FOR 18MONTHS WITH SLOW RADUAL COMPENSATION AND MAY BE CONTRIBUTOR TO RECENT WT LOSS. PT REMAINS OBESE FOR HT. PLAN: MONITOR PO INTAKE CLOSELY IF DECLINES; RECOMMEND ADDING GLUCERNA BID WILL CHANGE DIET TO 2000DM
[2021-03-07] MEDS: Paliperidone Palmitate 156 MG/ML SYRINGE IM (14:28)
[2021-03-07 17:49] LABS: Glucose, Whole Blood 246 mg/dL (60-115)
[2021-03-07 19:34] VITALS: BP 102/50; PULSE 86; TEMP 37.2; O2SAT 96
[2021-03-08 06:00] VITALS: BP 137/65; PULSE 72; RESP 16; TEMP 36.5; O2SAT 97
[2021-03-08 06:49] LABS: Glucose, Whole Blood 149 mg/dL (60-115)
--- NOTE | 2021-03-08 07:31 | P.PNPSI_ITS ---
Subjective Subjective Date of Service: 03/08/21 Reason For Visit: crisis Subjective Notes: 3 Day Healthcare Proxy: No Guardianship: No Interim History: pt tolerating invega sustenna IM dose 156mg given on 03/07/21. Pt denies side effects. no discomfort . pt quiet, withdrawn. reports he slept well. Denies SI or HI. Continues with auditory hallucinations and negative thoughts. Medication Compliance: Yes Side effects from medications: No Review of Systems Review of Systems Constitutional: No Fever, No Chills, No Fatigue, No Malaise Cardiovascular: No Chest Pain, No SOB, No Palpitations Respiratory: No Cough, No Sputum, No Dyspnea Gastrointestinal: No Nausea, No Vomiting, No Diarrhea, No Constipation, No Abdominal pain Genitourinary: No Dysuria, No Urinary Frequency, No Hematuria Musculoskeletal: No joint pain, No Myalgias, No Joint Swelling Skin: No Skin Lesions, No rash Neuro: No Weakness, No Numbness, No Headache Psych: No Anxiety/Panic, + Depression, No SI/HI, +AH & VH, + Social Issues Yes all other systems are reviewed and are negative Mental Status Exam Mental Status Exam Patient Appearance: Disheveled Patient Orientation: Person, Place, Time and Situation Level of Consciousness: Awake Patient Behavior: Appropriate Mood Description: Calm Affect Description: Withdrawn Patient Cognition Impaired: No Ability to Follow Directions: Good Speech Pattern: Clear Memory Description: Intact Judgement: Fair Diagnostics Vital Signs (24Hr): Vital Signs - 24 hr 03/07/21 19:34 03/08/21 06:00 Temperature 98.9 F 97.7 F Pulse Rate 86 72 Respiratory Rate 16 Blood Pressure 102/50 L 137/65 Pulse Oximetry 96 97 Body Mass Index 28.3 Labs Results: 03/05/21 17:53 03/05/21 17:53 Labs: Laboratory Results - last 48 hr 03/05/21 03/06/21 03/06/21 17:13 06:05 11:30 POC Glucose 245 H 179 H 60 03/07/21 03/07/21 03/08/21 06:50 17:45 06:41 POC Glucose 138 H 246 H 149 H Medications Medications Current Medications Generic Name Dose Route Start Last Admin Trade Name Freq PRN Reason Stop Dose Admin Clotrimazole 1 appl 03/05/21 23:50 03/07/21 21:07 Clotrimazole 1 % Cream 15 Gm Tube TOPICAL Not Given BID VENKATESH Protocol Glipizide 2.5 mg 03/06/21 09:00 03/07/21 08:37 Glipizide 5 Mg Tablet PO 2.5 mg DAILY VENKATESH Administration Hydroxyzine HCl 25 mg 03/06/21 18:54 03/06/21 19:03 Hydroxyzine Hcl 25 Mg Tablet PO 25 mg Q6H PRN Administration anxiety/restlessness Metformin HCl 1,000 mg 03/06/21 08:00 03/07/21 17:53 Metformin Hcl 1,000 Mg Tablet PO 1,000 mg BIDWM VENKATESH Administration Paliperidone Palmitate 117 mg 03/11/21 06:00 Paliperidone Palmitate 156 Mg/Ml Syringe IM 03/11/21 06:01 ONCE ONE Pharmacy Consult 1 each 03/05/21 17:00 Consult Rx Perform Med Rec MISCELLANE ONCE PRN Consult order Allergies Allergies Allergy/AdvReac Type Severity Reaction Status Date / Time No Known Allergies Allergy Verified 03/05/21 16:25 Assessment & Plan Assessment & Plan (1) Schizophrenia: Status: Acute Code(s): F20.9 - Schizophrenia, unspecified Assessment and Plan: The patient is a [place] male with a past history of schizophrenia and substance abuse with several psychosocial stressors such as homelesness and poor social support. Plan: - Started on Invega Sustenna 156 IM today. - On discharge will recieve Invega Sustenna 117 mg. - discharge planning with SW Greater than 50% of the session was spent on counseling and/or coordination of care Patient educated on: medication risk/benefits and substance abuse Informed Consent: further education needed Reason for contiued inpatient stay Substantial Risk for: inability to function and med/psych decompensation
[2021-03-08] MEDS: Clotrimazole 1 % Cream 15 GM TUBE 1 APPL TOPICAL ×2 (08:48→20:34)
[2021-03-08] MEDS: metFORMIN HCl 1,000 MG TABLET 1000 MG PO ×2 (08:48→16:49)
[2021-03-08] MEDS: glipiZIDE 5 MG TABLET 2.5 MG PO (08:48)
[2021-03-08] MEDS: hydrOXYzine HCL 25 MG TABLET PO (11:43)
[2021-03-08 12:06] LABS: Glucose, Whole Blood 156 mg/dL (60-115)
[2021-03-08 17:05] LABS: Glucose, Whole Blood 165 mg/dL (60-115)
[2021-03-08 18:00] VITALS: BP 124/70; PULSE 86; RESP 18; TEMP 36.5; O2SAT 97
[2021-03-08 21:05] LABS: Glucose, Whole Blood 225 mg/dL (60-115)
[2021-03-09 06:00] VITALS: BP 116/71; PULSE 86; RESP 16; TEMP 35.9; O2SAT 96
[2021-03-09 06:24] LABS: Glucose, Whole Blood 122 mg/dL (60-115)
[2021-03-09] MEDS: Clotrimazole 1 % Cream 15 GM TUBE 1 APPL TOPICAL ×2 (08:22→20:09)
[2021-03-09] MEDS: metFORMIN HCl 1,000 MG TABLET 1000 MG PO ×2 (08:22→16:58)
[2021-03-09] MEDS: glipiZIDE 5 MG TABLET 2.5 MG PO (08:22)
[2021-03-09 12:12] LABS: Glucose, Whole Blood 156 mg/dL (60-115)
[2021-03-09] MEDS: Ibuprofen 800 MG TABLET PO (12:39)
--- NOTE | 2021-03-09 16:45 | HO.PSYCHPN ---
Subjective Subjective Date of Service: 03/09/21 Reason For Visit: crisis Interim History: pt tolerating invega sustenna IM dose 156mg given on 03/07/21. Pt reports discomfort at injection site; ibuprofen started for moderate pain with good effect. pt a little more visible and more easily engged to day; smiles slightly; calm. reports he slept well. Denies SI or HI. Continues with auditory hallucinations and negative thoughts- appears a bit more content. Review of Systems Review of Systems Constitutional: No Fever, No Chills, No Fatigue, No Malaise Cardiovascular: No Chest Pain, No SOB, No Palpitations Respiratory: No Cough, No Sputum, No Dyspnea Gastrointestinal: No Nausea, No Vomiting, No Diarrhea, No Constipation, No Abdominal pain Genitourinary: No Dysuria, No Urinary Frequency, No Hematuria Musculoskeletal: moderate pain at injection site ( no sign of infection) No joint pain, No Myalgias, No Joint Swelling Skin: No Skin Lesions, No rash Neuro: No Weakness, No Numbness, No Headache Psych: No Anxiety/Panic, + Depression, No SI/HI, +AH & VH, + Social Issues Yes all other systems are reviewed and are negative Mental Status Exam Mental Status Exam Patient Appearance: Appropriate Patient Orientation: Person, Place, Time and Situation Level of Consciousness: Awake Patient Behavior: Appropriate Mood Description: Calm Affect Description: Withdrawn Patient Cognition Impaired: No Ability to Follow Directions: Good Speech Pattern: Clear Memory Description: Intact Judgement: Fair Diagnostics Vital Signs (24Hr): Vital Signs - 24 hr 03/08/21 18:00 03/09/21 06:00 Temperature 97.7 F 96.7 F L Pulse Rate 86 86 Respiratory Rate 18 16 Blood Pressure 124/70 116/71 Pulse Oximetry 97 96 Body Mass Index 28.3 Labs Results: 03/05/21 17:53 03/05/21 17:53 Labs: Laboratory Results - last 48 hr 03/07/21 03/08/21 03/08/21 17:45 06:41 12:01 POC Glucose 246 H 149 H 156 H 03/08/21 03/08/21 03/09/21 16:56 20:44 05:45 POC Glucose 165 H 225 H 122 H 03/09/21 12:04 POC Glucose 156 H Medications Medications Current Medications Generic Name Dose Route Start Last Admin Trade Name Freq PRN Reason Stop Dose Admin Clotrimazole 1 appl 03/05/21 23:50 03/09/21 08:22 Clotrimazole 1 % Cream 15 Gm Tube TOPICAL 1 appl BID VENKATESH Administration Protocol Glipizide 2.5 mg 03/06/21 09:00 03/09/21 08:22 Glipizide 5 Mg Tablet PO 2.5 mg DAILY VENKATESH Administration Hydroxyzine HCl 25 mg 03/06/21 18:54 03/08/21 11:43 Hydroxyzine Hcl 25 Mg Tablet PO 25 mg Q6H PRN Administration anxiety/restlessness Ibuprofen 800 mg 03/09/21 12:23 03/09/21 12:39 Ibuprofen 800 Mg Tablet PO 800 mg Q8H PRN Administration Pain, Moderate (Pain Scale 4-6 Metformin HCl 1,000 mg 03/06/21 08:00 03/09/21 08:22 Metformin Hcl 1,000 Mg Tablet PO 1,000 mg BIDWM VENKATESH Administration Paliperidone Palmitate 117 mg 03/11/21 06:00 Paliperidone Palmitate 156 Mg/Ml Syringe IM 03/11/21 06:01 ONCE ONE Pharmacy Consult 1 each 03/05/21 17:00 Consult Rx Perform Med Rec MISCELLANE ONCE PRN Consult order Allergies Allergies Allergy/AdvReac Type Severity Reaction Status Date / Time No Known Allergies Allergy Verified 03/05/21 16:25 Assessment & Plan Assessment & Plan (1) Schizophrenia: Status: Acute Code(s): F20.9 - Schizophrenia, unspecified Assessment and Plan: The patient is a Citizen Of [place] male with a past history of schizophrenia and substance abuse with several psychosocial stressors such as homelesness and poor social support. Plan: ibuprofen 600mg Q6 hours PRN for pain at injection site - Started on Invega Sustenna 156 IM 03/07/21 - On discharge will recieve Invega Sustenna 117 mg. - discharge planning with SW Greater than 50% of the session was spent on counseling and/or coordination of care Reason for contiued inpatient stay Substantial Risk for: inability to function and med/psych decompensation
[2021-03-09 17:11] VITALS: BP 141/67; PULSE 86; RESP 18; TEMP 36.3; O2SAT 98
[2021-03-09 17:38] LABS: Glucose, Whole Blood 109 mg/dL (60-115)
[2021-03-09 21:02] LABS: Glucose, Whole Blood 127 mg/dL (60-115)
[2021-03-10 04:35] VITALS: BP 136/89; PULSE 130; RESP 16; TEMP 36.2; O2SAT 95
[2021-03-10] MEDS: hydrOXYzine HCL 25 MG TABLET PO (04:42)
[2021-03-10 05:13] LABS: Glucose, Whole Blood 139 mg/dL (60-115)
[2021-03-10] MEDS: glipiZIDE 5 MG TABLET 2.5 MG PO (09:48)
[2021-03-10] MEDS: Ibuprofen 800 MG TABLET PO (09:48)
[2021-03-10] MEDS: metFORMIN HCl 1,000 MG TABLET 1000 MG PO ×2 (09:48→17:19)
--- NOTE | 2021-03-10 10:04 | P.PNPSI_ITS ---
Subjective Subjective Date of Service: 03/10/21 Reason For Visit: crisis Subjective Notes: [place] Warning and 3 Day Healthcare Proxy: No Guardianship: No Medical Problems Affecting Mental Status: No Interim History: The patient reported sporadic auditory hallucinations. Over night, he woke up several times due to nightmares. he also complained of pain on the site of the injection but no symptoms of cellulitis. Medication Compliance: Yes Side effects from medications: No Attending Groups: Intermittent Review of Systems Acute medical concerns: No Medical Review of Systems: unchanged Mental Status Exam Mental Status Exam Patient Appearance: Disheveled Patient Orientation: Person, Place, Time and Situation Level of Consciousness: Awake Patient Behavior: Appropriate Mood Description: Calm Affect Description: Withdrawn and Constricted Patient Cognition Impaired: No Ability to Follow Directions: Good Speech Pattern: Clear Memory Description: Intact Hallucinations: Auditory Delusions: Paranoid Ideation Thought Process: Linear Thought Content: positive for Intact Judgement: Fair Diagnostics Vital Signs (24Hr): Vital Signs - 24 hr 03/09/21 17:11 03/10/21 04:35 Temperature 97.4 F 97.2 F Pulse Rate 86 130 H Respiratory Rate 18 16 Blood Pressure 141/67 H 136/89 Pulse Oximetry 98 95 Body Mass Index 28.3 Labs Results: 03/05/21 17:53 03/05/21 17:53 Labs: Laboratory Results - last 48 hr 03/08/21 03/08/21 03/08/21 12:01 16:56 20:44 POC Glucose 156 H 165 H 225 H 03/09/21 03/09/21 03/09/21 05:45 12:04 16:48 POC Glucose 122 H 156 H 109 03/09/21 03/10/21 20:29 04:42 POC Glucose 127 H 139 H Medications Medications Current Medications Generic Name Dose Route Start Last Admin Trade Name Freq PRN Reason Stop Dose Admin Clotrimazole 1 appl 03/05/21 23:50 03/09/21 20:09 Clotrimazole 1 % Cream 15 Gm Tube TOPICAL 1 appl BID VENKATESH Administration Protocol Glipizide 2.5 mg 03/06/21 09:00 03/10/21 09:48 Glipizide 5 Mg Tablet PO 2.5 mg DAILY VENKATESH Administration Hydroxyzine HCl 25 mg 03/06/21 18:54 03/10/21 04:42 Hydroxyzine Hcl 25 Mg Tablet PO 25 mg Q6H PRN Administration anxiety/restlessness Ibuprofen 800 mg 03/09/21 12:23 03/10/21 09:48 Ibuprofen 800 Mg Tablet PO 800 mg Q8H PRN Administration Pain, Moderate (Pain Scale 4-6 Metformin HCl 1,000 mg 03/06/21 08:00 03/10/21 09:48 Metformin Hcl 1,000 Mg Tablet PO 1,000 mg BIDWM VENKATESH Administration Paliperidone Palmitate 117 mg 03/11/21 06:00 Paliperidone Palmitate 156 Mg/Ml Syringe IM 03/11/21 06:01 ONCE ONE Pharmacy Consult 1 each 03/05/21 17:00 Consult Rx Perform Med Rec MISCELLANE ONCE PRN Consult order Allergies Allergies Allergy/AdvReac Type Severity Reaction Status Date / Time No Known Allergies Allergy Verified 03/05/21 16:25 Assessment & Plan Assessment & Plan (1) Schizophrenia: Status: Acute Code(s): F20.9 - Schizophrenia, unspecified Assessment and Plan: The patient is a [place] male with a past history of schizophrenia and substance abuse with several psychosocial stressors such as homelesness and poor social support. Plan: - Invega Sustenna 117 IM tomorrow. - Discharge tomorrow PM after the 2nd shot to [place] on Invega Sustenna 117 mg monthly Greater than 50% of the session was spent on counseling and/or coordination of care Reason for contiued inpatient stay Substantial Risk for: harm to self, harm to others, inability to function, rapid decompensation and med/psych decompensation
[2021-03-10] MEDS: Clotrimazole 1 % Cream 15 GM TUBE 1 APPL TOPICAL ×2 (10:23→21:08)
[2021-03-10 11:40] LABS: Glucose, Whole Blood 145 mg/dL (60-115)
[2021-03-10 17:06] LABS: Glucose, Whole Blood 181 mg/dL (60-115)
[2021-03-10 18:00] VITALS: BP 129/85; PULSE 105; RESP 18; TEMP 36.1
[2021-03-10 21:19] LABS: Glucose, Whole Blood 161 mg/dL (60-115)
[2021-03-11] MEDS: hydrOXYzine HCL 25 MG TABLET PO (03:33)
[2021-03-11 06:00] VITALS: BP 134/70; PULSE 73; RESP 18; TEMP 36.6; O2SAT 94
[2021-03-11 06:05] LABS: Glucose, Whole Blood 166 mg/dL (60-115)
[2021-03-11] MEDS: glipiZIDE 5 MG TABLET 2.5 MG PO (09:07)
[2021-03-11] MEDS: metFORMIN HCl 1,000 MG TABLET 1000 MG PO (09:07)
[2021-03-11] MEDS: Clotrimazole 1 % Cream 15 GM TUBE 1 APPL TOPICAL (09:08)
--- NOTE | 2021-03-11 09:09 | P.DS_ITS ---
DS: Providers Provider Date of Service: 03/11/21 Date of admission: 03/06/21 14:22 Date of discharge: 03/11/21 Primary care physician: Unknown Physician Consults: 03/05/21 17:52 Consult to Crisis Stat Reason for consultation: AH/VH, depression, medication noncompliant Has provider been notified: No Consult to Psychiatry Stat Consulting Provider: Jose Jeter Reason for consultation: Medication noncompliance Attending physician on discharge: Surendra Del Rio DS: Diagnosis Discharge Diagnosis (1) Schizophrenia: Status: Acute DS: Medications Discharge Medications Home Medications: Home Medications Medication Instructions Recorded Confirmed No Known Home Meds 03/05/21 03/05/21 Previous Rx's Medication Instructions Recorded paliperidone palmitate [Invega 117 mg IM QMONTH #0.75 ml 03/10/21 Sustenna] Discharge Plan Discharge Patient Disposition: Home, Self-Care Discharge Diagnosis: Schizophrenia Referrals: [facility]- Golden Sepulveda [Other] - 04/07/21 (You are due for your next Invega Sustenna Injection after 04/07/21. The Pharmacist at [facility] (at [facility]) is Golden Sepulveda- he can give you the injection. A prescription has all ready been sent. Just go to pharmacy and ask for Mr Sepulveda and he will help you. ) NEVIN SMITH, PSYCHIARTY [Other] - 04/09/21 2:00 pm (TELEHEALTH) NEVIN SMITH, PSYCHIATRY [Other] - 05/05/21 10:00 am (TELEHEALTH) Trina Singletary (therapist) [Other] - 03/14/21 10:00 am (Telehealth appointment) Physician,Unknown [Primary Care Provider] - 1 Week Discharge Medications: New Invega Sustenna 117 mg/0.75 mL syringe 117 mg IM QMONTH Qty: 0.75 RF: 3 metformin 1,000 mg Tablet 1,000 mg PO BIDWM 30 Days Qty: 60 RF: 0 glipizide 5 mg Tablet 2.5 mg PO DAILY 30 Days Qty: 15 RF: 0 No Action No Known Home Meds RF: 0 Discharge Orders: Discharge Order (Routine); Ordered 03/11/21 Ordered By: Surendra Del Rio Diet: diabetic diet Activity on Discharge: As tolerated Stand Alone Forms: Patient Portal Discharge page Care Plan Goals: Continue with Care Plan Goals as outpatient Health Concerns: Continue treatment of DM by PCP Plan of Treatment: Continue medication management as an outpatient. Referral to outpatient providers were done Assessment: Adult male with Schizophrenia who was admitted for exacerbation of psychosis in the context of poor access to services. Now stable with long acting atypical antipsychotics. Mental Status Exam Mental Status Exam Patient Appearance: Well Grooomed and Appropriate Patient Orientation: Person, Place, Time and Situation Level of Consciousness: Awake Patient Behavior: Appropriate and Cooperative Mood Description: Calm Affect Description: Appropriate Patient Cognition Impaired: No Ability to Follow Directions: Good Speech Pattern: Clear Memory Description: Intact Hallucinations: None Delusions: Not Present Thought Content: positive for Intact Judgement: Fair Data Data Completed and Pending Completed studies during hospitalization [Text1]: 03/05/21 03/05/21 03/05/21 17:13 17:17 17:36 WBC RBC Hgb Hct MCV MCH MCHC RDW Plt Count MPV Immature Gran % (Auto) Neut % (Auto) Lymph % (Auto) [place] % (Auto) Eos % (Auto) Baso % (Auto) Lymph # (Auto) [place] # (Auto) Eos # (Auto) Baso # (Auto) Abs Immat Gran (auto) Absolute Neuts (auto) Absolute Nucleated RBC Nucleated RBC % (auto) Hold Blue Top Sodium Potassium Chloride Carbon Dioxide Anion Gap BUN Creatinine Estim Creat Clear Calc Estimated GFR POC Glucose 245 H Random Glucose Calcium Magnesium Total Bilirubin Direct Bilirubin AST ALT Alkaline Phosphatase Total Protein Albumin Lipase Urine Color YELLOW Urine Appearance CLEAR Urine pH 6.5 Ur Specific [place] 1.025 Urine Protein 1+ H Urine Glucose (UA) 500 H Urine Ketones 5 Urine Blood NEG Urine Nitrite NEG Ur Leukocyte Esterase NEG Urine RBC 0 Urine WBC 0 Ur Squamous Epith Cells TRACE Urine Bacteria TRACE Urine Sperm NOTED Salicylates Urine Opiates Screen Acetaminophen Ur Barbiturates Screen Ur Phencyclidine Scrn Ur Amphetamines Screen U Benzodiazepines Scrn Urine Cocaine Screen U Marijuana (THC) Screen Ethyl Alcohol Acetone, Qual COVID-19 (DANIELLE) Negative COVID-19 Clin Com See Note 03/05/21 03/05/21 03/05/21 17:36 17:53 17:53 WBC 10.7 RBC 5.05 Hgb 13.7 L Hct 40.1 L MCV 79.4 L MCH 27.1 MCHC 34.2 RDW 13.1 Plt Count 421 H MPV 9.9 Immature Gran % (Auto) 0.3 Neut % (Auto) 73.9 H Lymph % (Auto) 19.2 L [place] % (Auto) 6.2 Eos % (Auto) 0.1 Baso % (Auto) 0.3 Lymph # (Auto) 2.1 [place] # (Auto) 0.7 Eos # (Auto) 0.0 Baso # (Auto) 0.0 Abs Immat Gran (auto) 0.03 Absolute Neuts (auto) 7.9 Absolute Nucleated RBC 0.000 Nucleated RBC % (auto) 0.0 Hold Blue Top Sodium 141 Potassium 4.2 Chloride 105 Carbon Dioxide 26 Anion Gap 14 BUN 15 Creatinine 1.50 H Estim Creat Clear Calc 70.0 Estimated GFR 50 POC Glucose Random Glucose 275 H Calcium 9.8 Magnesium 2.2 Total Bilirubin 0.3 Direct Bilirubin < 0.2 AST 15 ALT 10 Alkaline Phosphatase 74 Total Protein 8.1 H Albumin 4.4 Lipase 67 Urine Color Urine Appearance Urine pH Ur Specific [place] Urine Protein Urine Glucose (UA) Urine Ketones Urine Blood Urine Nitrite Ur Leukocyte Esterase Urine RBC Urine WBC Ur Squamous Epith Cells Urine Bacteria Urine Sperm Salicylates < 5.0 L Urine Opiates Screen Not Detected Acetaminophen < 1 Ur Barbiturates Screen Not Detected Ur Phencyclidine Scrn Not Detected Ur Amphetamines Screen Not Detected U Benzodiazepines Scrn Not Detected Urine Cocaine Screen POSITIVE H U Marijuana (THC) Screen Not Detected Ethyl Alcohol Acetone, Qual COVID-19 (DANIELLE) COVID-19 Clin Com 03/05/21 03/05/21 03/05/21 17:53 17:53 17:54 WBC RBC Hgb Hct MCV MCH MCHC RDW Plt Count MPV Immature Gran % (Auto) Neut % (Auto) Lymph % (Auto) [place] % (Auto) Eos % (Auto) Baso % (Auto) Lymph # (Auto) [place] # (Auto) Eos # (Auto) Baso # (Auto) Abs Immat Gran (auto) Absolute Neuts (auto) Absolute Nucleated RBC Nucleated RBC % (auto) Hold Blue Top SEE NOTE Sodium Potassium Chloride Carbon Dioxide Anion Gap BUN Creatinine Estim Creat Clear Calc Estimated GFR POC Glucose Random Glucose Calcium Magnesium Total Bilirubin Direct Bilirubin AST ALT Alkaline Phosphatase Total Protein Albumin Lipase Urine Color Urine Appearance Urine pH Ur Specific [place] Urine Protein Urine Glucose (UA) Urine Ketones Urine Blood Urine Nitrite Ur Leukocyte Esterase Urine RBC Urine WBC Ur Squamous Epith Cells Urine Bacteria Urine Sperm Salicylates Urine Opiates Screen Acetaminophen Ur Barbiturates Screen Ur Phencyclidine Scrn Ur Amphetamines Screen U Benzodiazepines Scrn Urine Cocaine Screen U Marijuana (THC) Screen Ethyl Alcohol < 10 Acetone, Qual Negative COVID-19 (DANIELLE) COVID-19 [employer] 03/06/21 03/06/21 03/07/21 06:05 11:30 06:50 WBC RBC Hgb Hct MCV MCH MCHC RDW Plt Count MPV Immature Gran % (Auto) Neut % (Auto) Lymph % (Auto) [place] % (Auto) Eos % (Auto) Baso % (Auto) Lymph # (Auto) [place] # (Auto) Eos # (Auto) Baso # (Auto) Abs Immat Gran (auto) Absolute Neuts (auto) Absolute Nucleated RBC Nucleated RBC % (auto) Hold Blue Top Sodium Potassium Chloride Carbon Dioxide Anion Gap BUN Creatinine Estim Creat Clear Calc Estimated GFR POC Glucose 179 H 60 138 H Random Glucose Calcium Magnesium Total Bilirubin Direct Bilirubin AST ALT Alkaline Phosphatase Total Protein Albumin Lipase Urine Color Urine Appearance Urine pH Ur Specific [place] Urine Protein Urine Glucose (UA) Urine Ketones Urine Blood Urine Nitrite Ur Leukocyte Esterase Urine RBC Urine WBC Ur Squamous Epith Cells Urine Bacteria Urine Sperm Salicylates Urine Opiates Screen Acetaminophen Ur Barbiturates Screen Ur Phencyclidine Scrn Ur Amphetamines Screen U Benzodiazepines Scrn Urine Cocaine Screen U Marijuana (THC) Screen Ethyl Alcohol Acetone, Qual COVID-19 (DANIELLE) COVID-19 [employer] 03/07/21 03/08/21 03/08/21 17:45 06:41 12:01 WBC RBC Hgb Hct MCV MCH MCHC RDW Plt Count MPV Immature Gran % (Auto) Neut % (Auto) Lymph % (Auto) [place] % (Auto) Eos % (Auto) Baso % (Auto) Lymph # (Auto) [place] # (Auto) Eos # (Auto) Baso # (Auto) Abs Immat Gran (auto) Absolute Neuts (auto) Absolute Nucleated RBC Nucleated RBC % (auto) Hold Blue Top Sodium Potassium Chloride Carbon Dioxide Anion Gap BUN Creatinine Estim Creat Clear Calc Estimated GFR POC Glucose 246 H 149 H 156 H Random Glucose Calcium Magnesium Total Bilirubin Direct Bilirubin AST ALT Alkaline Phosphatase Total Protein Albumin Lipase Urine Color Urine Appearance Urine pH Ur Specific [place] Urine Protein Urine Glucose (UA) Urine Ketones Urine Blood Urine Nitrite Ur Leukocyte Esterase Urine RBC Urine WBC Ur Squamous Epith Cells Urine Bacteria Urine Sperm Salicylates Urine Opiates Screen Acetaminophen Ur Barbiturates Screen Ur Phencyclidine Scrn Ur Amphetamines Screen U Benzodiazepines Scrn Urine Cocaine Screen U Marijuana (THC) Screen Ethyl Alcohol Acetone, Qual COVID-19 (DANIELLE) COVID-19 [employer] 03/08/21 03/08/21 03/09/21 16:56 20:44 05:45 WBC RBC Hgb Hct MCV MCH MCHC RDW Plt Count MPV Immature Gran % (Auto) Neut % (Auto) Lymph % (Auto) [place] % (Auto) Eos % (Auto) Baso % (Auto) Lymph # (Auto) [place] # (Auto) Eos # (Auto) Baso # (Auto) Abs Immat Gran (auto) Absolute Neuts (auto) Absolute Nucleated RBC Nucleated RBC % (auto) Hold Blue Top Sodium Potassium Chloride Carbon Dioxide Anion Gap BUN Creatinine Estim Creat Clear Calc Estimated GFR POC Glucose 165 H 225 H 122 H Random Glucose Calcium Magnesium Total Bilirubin Direct Bilirubin AST ALT Alkaline Phosphatase Total Protein Albumin Lipase Urine Color Urine Appearance Urine pH Ur Specific [place] Urine Protein Urine Glucose (UA) Urine Ketones Urine Blood Urine Nitrite Ur Leukocyte Esterase Urine RBC Urine WBC Ur Squamous Epith Cells Urine Bacteria Urine Sperm Salicylates Urine Opiates Screen Acetaminophen Ur Barbiturates Screen Ur Phencyclidine Scrn Ur Amphetamines Screen U Benzodiazepines Scrn Urine Cocaine Screen U Marijuana (THC) Screen Ethyl Alcohol Acetone, Qual COVID-19 (DANIELLE) COVID-19 [employer] 03/09/21 03/09/21 03/09/21 12:04 16:48 20:29 WBC RBC Hgb Hct MCV MCH MCHC RDW Plt Count MPV Immature Gran % (Auto) Neut % (Auto) Lymph % (Auto) [place] % (Auto) Eos % (Auto) Baso % (Auto) Lymph # (Auto) [place] # (Auto) Eos # (Auto) Baso # (Auto) Abs Immat Gran (auto) Absolute Neuts (auto) Absolute Nucleated RBC Nucleated RBC % (auto) Hold Blue Top Sodium Potassium Chloride Carbon Dioxide Anion Gap BUN Creatinine Estim Creat Clear Calc Estimated GFR POC Glucose 156 H 109 127 H Random Glucose Calcium Magnesium Total Bilirubin Direct Bilirubin AST ALT Alkaline Phosphatase Total Protein Albumin Lipase Urine Color Urine Appearance Urine pH Ur Specific [place] Urine Protein Urine Glucose (UA) Urine Ketones Urine Blood Urine Nitrite Ur Leukocyte Esterase Urine RBC Urine WBC Ur Squamous Epith Cells Urine Bacteria Urine Sperm Salicylates Urine Opiates Screen Acetaminophen Ur Barbiturates Screen Ur Phencyclidine Scrn Ur Amphetamines Screen U Benzodiazepines Scrn Urine Cocaine Screen U Marijuana (THC) Screen Ethyl Alcohol Acetone, Qual COVID-19 (DANIELLE) COVID-19 [employer] 03/10/21 03/10/21 03/10/21 04:42 11:29 17:02 WBC RBC Hgb Hct MCV MCH MCHC RDW Plt Count MPV Immature Gran % (Auto) Neut % (Auto) Lymph % (Auto) [place] % (Auto) Eos % (Auto) Baso % (Auto) Lymph # (Auto) [place] # (Auto) Eos # (Auto) Baso # (Auto) Abs Immat Gran (auto) Absolute Neuts (auto) Absolute Nucleated RBC Nucleated RBC % (auto) Hold Blue Top Sodium Potassium Chloride Carbon Dioxide Anion Gap BUN Creatinine Estim Creat Clear Calc Estimated GFR POC Glucose 139 H 145 H 181 H Random Glucose Calcium Magnesium Total Bilirubin Direct Bilirubin AST ALT Alkaline Phosphatase Total Protein Albumin Lipase Urine Color Urine Appearance Urine pH Ur Specific [place] Urine Protein Urine Glucose (UA) Urine Ketones Urine Blood Urine Nitrite Ur Leukocyte Esterase Urine RBC Urine WBC Ur Squamous Epith Cells Urine Bacteria Urine Sperm Salicylates Urine Opiates Screen Acetaminophen Ur Barbiturates Screen Ur Phencyclidine Scrn Ur Amphetamines Screen U Benzodiazepines Scrn Urine Cocaine Screen U Marijuana (THC) Screen Ethyl Alcohol Acetone, Qual COVID-19 (DANIELLE) COVID-19 [employer] 03/10/21 03/11/21 21:14 05:44 WBC RBC Hgb Hct MCV MCH MCHC RDW Plt Count MPV Immature Gran % (Auto) Neut % (Auto) Lymph % (Auto) [place] % (Auto) Eos % (Auto) Baso % (Auto) Lymph # (Auto) [place] # (Auto) Eos # (Auto) Baso # (Auto) Abs Immat Gran (auto) Absolute Neuts (auto) Absolute Nucleated RBC Nucleated RBC % (auto) Hold Blue Top Sodium Potassium Chloride Carbon Dioxide Anion Gap BUN Creatinine Estim Creat Clear Calc Estimated GFR POC Glucose 161 H 166 H Random Glucose Calcium Magnesium Total Bilirubin Direct Bilirubin AST ALT Alkaline Phosphatase Total Protein Albumin Lipase Urine Color Urine Appearance Urine pH Ur Specific [place] Urine Protein Urine Glucose (UA) Urine Ketones Urine Blood Urine Nitrite Ur Leukocyte Esterase Urine RBC Urine WBC Ur Squamous Epith Cells Urine Bacteria Urine Sperm Salicylates Urine Opiates Screen Acetaminophen Ur Barbiturates Screen Ur Phencyclidine Scrn Ur Amphetamines Screen U Benzodiazepines Scrn Urine Cocaine Screen U Marijuana (THC) Screen Ethyl Alcohol Acetone, Qual COVID-19 (DANIELLE) COVID-19 Clin Com DS: Summary Hospital Course Hospital Course: The patient was initially admitted from the ED since he had exacerbation of psychotic symptoms in the context of no access to mental health services and running out of Risperdal. Also, the patient was abusing drugs in the community. He was brought by a friend and his partner that acknowledged that when the patient becomes psychotic, he could be violent and dangerous, historically, he had legal problems for violence while psychotic. On admittsion, he complained of auditory hallucinations with derogatory content, paranoia, ideas of reference and suicidal thoughts. He was assessed by crisis and transferred to for psychiatric stabilization. At , he was re-started on Risperdal. The patient also has several psychosocial stressors such as instable housing and poor access to mental health treatment. We discussed options and he agreed to change Risperdal PO to Invega Sustenna IM to assure compliance. He received initially 156 mg and later 117 mg. The dose was corrected to a lower level since he has some renal issues. The psychotic symptoms resolved, he was future oriented and he was willing to go back to the community. He signed a 3 day notice letter. Since there were no safety concerns, discharge planning was done. Time spent discussing smoking cessation with patient: 3 to 10 minutes Status at Discharge Cognitive/behavioral status at discharge: The patient's psychotic symptoms resolved, cognitively is intact. Functional status at discharge: independent ambulation Overall status at discharge: patient is back to baseline Time Spent with Patient Time attestation: Total time spent providing and/or coordinating discharge services: Time spent: Less than 30 minutes
--- NOTE | 2021-03-11 10:32 | PC.NURSE ---
PT IS AWARE AND READY FOR DISCHARGE. HE REPORTS NO URGES TO HARM HIMSELF OR OTHERS. PT DENIES DEPRESSION AND SAYS HIS ANXIETY HAS IMPROVED SIGNIFICANTLY. PT HAS BEEN FREE FROM PANIC ATTACKS. PT IS INDEPENDENTLY TAKING CARE OF ADLS. HE IS EATING AND SLEEPING WELL. PT HAS BEEN IN BEHAVIORAL CONTROL AND VISIBLE ON THE UNIT. HE IS SOCIAL WITH PEERS. PT IS MEDICATION COMPLIANT AND OPEN TO TEACHING REGARDING MEDICATIONS. PT DENIES AUDITORY OR VISUAL HALLUCINATIONS. HE IS GOAL ORIENTED REGARDING HIS TREATMENT. PTS PAPERWORK WILL BE FAXED TO PROVIDERS PER PROTOCOL.
== END 2021-03-11 12:50 | disposition home or self-care (01) | DRG 750 ==
LOC: HO.ED 03-06 14:17 → HO.PM5 03-06 14:23
PROVIDERS: Physician Assistant; Admitting Provider Psychiatry & Neurology Psychiatry; Emergency Provider Emergency Medicine Emergency Medical Services; Visit Provider Psychiatry & Neurology Psychiatry
DX: F20.9 Schizophrenia, unspecified (principal); E11.65 Type 2 diabetes mellitus with hyperglycemia; Z59.0 Homelessness; Z20.822 Contact with and (suspected) exposure to COVID-19; Z79.84 Long term (current) use of oral hypoglycemic drugs; Z79.899 Other long term (current) drug therapy
CPT/HCPCS: 36415; 80048; 80076; 80143; 80179; 80307; 80320; 81001; 82009; 82947; 83690; 83735; 85025; 87635; 93005; 99285; J2426

== ENCOUNTER 2021-04-11 17:38 | Emergency (ER) | payer OTHER, SELFPAY ==
[2021-04-11 17:49] VITALS: BP 116/81; PULSE 96; RESP 18; TEMP 36.7; O2SAT 99; BMI 29.8
[2021-04-11 18:14] VITALS: BP 123/78; PULSE 97; RESP 16; TEMP 36.3; O2SAT 100; BMI 26.9
[2021-04-11 18:18] LABS: Glucose, Whole Blood 176 mg/dL (60-115)
--- NOTE | 2021-04-11 18:25 | PC.NURSE ---
client during interview told t/w he used three bags of heroin two days ago, a two month relapse with opiates
--- NOTE | 2021-04-11 18:32 | ED.PSYCH ---
HPI - Psych General Chief Complaint: Psychiatric Symptoms Stated Complaint: Crisis Time Seen by Provider: 04/11/21 18:25 Source: patient and EMS Mode of arrival: ambulatory Limitations: no limitations History of Present Illness HPI Narrative: 45-year-old male who reports history of schizoaffective disorder with auditory hallucinations a baseline also history of substance abuse with preferred snorting of heroin who presents ambulatory with complaint of states he is hearing voices that are disorganized and no associated come in. States he has not been compliant with his psychiatric medication for past couple days. He otherwise denies any alcohol use. Denies any medical problems at this time. Denies any SI or HI. MD complaint: other (Hearing voices) Onset (ago): day(s) Duration: intermittent History of same: Yes Relieving factors: medication Exacerbating factors: drug use Context: recent drug abuse Associated psychiatric symptoms: none Associated symptoms: denies other symptoms Treatments prior to arrival: none Related Data Home Medications Medication Instructions Recorded Confirmed alcohol swabs [Alcohol Prep Pads] 1 pad TOPICAL QWEEK 04/11/21 04/11/21 blood sugar diagnostic [FreeStyle 04/11/21 04/11/21 Lite Strips] blood-glucose meter [FreeStyle 04/11/21 04/11/21 [place] Lite] dulaglutide [Trulicity] 1 mg SUBCUT QWEEK 04/11/21 04/11/21 glipizide 1 tab PO BID 04/11/21 04/11/21 lancets [FreeStyle Lancets] 04/11/21 04/11/21 melatonin 1 tab PO BEDTIME PRN 04/11/21 04/11/21 metformin 1 tab PO BID 04/11/21 04/11/21 trazodone 1 tab PO BEDTIME 04/11/21 04/11/21 Allergies Allergy/AdvReac Type Severity Reaction Status Date / Time No Known Allergies Allergy Verified 04/11/21 17:49 Review of Systems Review of Systems: Constitutional: No Weight loss, No Fever, No Chills, No Night Sweats, No Fatigue, No Malaise ENT/Mouth: No Hearing loss, No Ear Pain, No Nasal Congestion, No Sinus Pain, No Hoarseness, No sore throat, No Rhinorrhea, No Swallowing Difficulty Eyes: No Eye Pain, No Swelling, No Redness, No Foreign Body, No Discharge, No Vision Changes Cardiovascular: No Chest Pain, No SOB, No Dyspnea on Exertion, No Orthopnea, No Edema, No Palpitations Respiratory: No Cough, No Sputum, No Wheezing, No Smoke Exposure, No Dyspnea Gastrointestinal: No Nausea, No Vomiting, No Diarrhea, No Constipation, No abdominal Pain, No Hematochezia, No Melena Genitourinary: no irregular bleeding, No Dysuria, No Urinary Frequency, No Hematuria, No Urinary Incontinence, No Urgency, No Flank Pain, No Urinary Flow Changes, No Hesitancy Musculoskeletal: No joint pain, No Myalgias, No Joint Swelling Skin: No Skin Lesions, No rash Neuro: No Weakness, No Numbness, No Paresthesias, No Loss of Consciousness, No Dizziness, No Headache Psych: As noted per HPI Heme/Lymph: No Bruising, No Bleeding,No Lymphadenopathy Endocrine: No Polyuria, No Polydipsia, No Temperature Intolerance Yes all other systems are reviewed and are negative [facility] Past Medical History Medical History Diabetes Schizophrenia Social History Social History Household Members: Significant Other Household Members Other:: 2 children 14 and 2 years old Housing: Apartment Do you presently have visiting nurse or other home services: No Alcohol intake: current Alcohol intake frequency: a few times a week Alcohol type: beer Cigarettes Per Day: 2 Years Smoked: 2 years Second Hand Smoke Exposure: No Substance Use Type: Crack/Cocaine and Marijuana Advance Directives: No Advance Directives Information Provided: No service: No Sexual orientation: Straight/Heterosexual Physical Exam Vital Signs: Vital Signs: Last Vital Signs Temp 97.3 F 04/11/21 18:14 Pulse 97 04/11/21 18:14 Resp 16 04/11/21 22:00 BP 123/78 04/11/21 18:14 Pulse Ox 100 04/11/21 18:14 Body Mass Index 26.9 Reviewed Const: General: cooperative and healthy appearing; No acute distress or intoxicated appearing Nutritional Appearance: average body habitus Orientation/consciousness: patient oriented x3 HENMT: Head: Yes normal to inspection Ears: hearing grossly normal bilaterally Eyes: General: appearance normal, both eyes and all related structures Visual Morris: normal visual morris by confrontation Neck: Neck: Yes normal visual inspection, No positive Brudzinski's sign, No positive Kernig's sign and No tender Thyroid: Thyroid normal Chest: Chest palpation & inspection: normal inspection of the chest Resp: Effort & Inspection: normal respiratory effort Auscultation: clear to auscultation bilaterally Cardio: Jugular venous distension: no JVD Rhythm: regular rhythm Heart sounds: S1 normal heart sound present and S2 normal heart sound present GI: Inspection: Yes normal to inspection Palpation (GI): Soft to palpation Percussion: Yes normal to percussion Auscultation: normal bowel sounds : General: Yes no CVA tenderness Back/Spine/Pelvis: Back: no CVA tenderness Skin: General skin exam: no rashes or lesions noted Neuro: General: patient oriented x3 Extrem: General: Yes normal to inspection Course Reevaluation(s) Reevaluation #1: Baseline history of schizophrenia offers no other complaints. He is relatively pleasant, will check medical screening labs and obtain psychiatric evaluation. Consultations Consultation #1: Patient evaluated crisis team he is at baseline he is very familiar with her service. He denies any SI or HI. Plan for outpatient referral for close follow-up. In the meantime he will go to living room. He has been cleared by the crisis team for discharge from psychiatric standpoint. He offers no other medical complaints. He feels comfortable plan. Patient will be discharged to living room. At this time it is 01:00 o'clock in the morning there is no ride for him requesting to be here until the morning so he can get to living room facility. MDM - Psych Lab Data Result diagrams: 04/11/21 18:56 04/11/21 18:56 Labs: Lab Results 04/11/21 04/11/21 04/11/21 Range/Units 18:15 18:56 18:56 WBC 9.3 (4.8-10.8) X10*3/uL RBC 4.30 L (4.60-5.80) X10*6/uL Hgb 12.1 L (14.0-18.0) g/dl Hct 33.9 L (42-52) % MCV 78.8 L (80-98) fL MCH 28.1 (27.0-33.0) pg MCHC 35.7 (31.0-36.0) g/dl RDW 12.9 (11.0-16.0) % Plt Count 349 (160-400) X10*3/uL MPV 9.1 L (9.4-12.4) fL Immature Gran % (Auto) 0.1 (0.0-0.4) % Neut % (Auto) 73.6 H (45-73) % Lymph % (Auto) 19.6 L (20-40) % [place] % (Auto) 6.3 (2-11) % Eos % (Auto) 0.3 (0-4) % Baso % (Auto) 0.1 (0-2) % Lymph # (Auto) 1.8 (1.2-4.9) X10*3/uL [place] # (Auto) 0.6 (0.1-1.2) X10*3/uL Eos # (Auto) 0.0 (0.0-0.4) X10*3/uL Baso # (Auto) 0.0 (0.0-0.2) X10*3/uL Abs Immat Gran (auto) 0.01 (0.00-0.03) X10*3/uL Absolute Neuts (auto) 6.8 (2.0-8.3) X10*3/uL Absolute Nucleated RBC 0.000 (0.0-0.012) X10*3/uL Nucleated RBC % (auto) 0.0 (0.0-0.2) /100WBC Sodium 142 (135-145) mmol/L Potassium 4.1 (3.3-5.1) mmol/L Chloride 106 (96-108) mmol/L Carbon Dioxide 29 (22-29) mmol/L Anion Gap 11 L (12-20) BUN 10 (9-16) mg/dL Creatinine 1.11 (0.5-1.4) mg/dL Estim Creat Clear Calc 84.9 Estimated GFR > 60 POC Glucose 176 H (60-115) mg/dL Random Glucose 156 H D (60-115) mg/dL Calcium 9.2 D (8.4-10.2) mg/dL Total Bilirubin < 0.2 (0.0-1.0) mg/dL AST 22 D (5-37) U/L ALT 24 (0-40) U/L Alkaline Phosphatase 144 H D (39-117) U/L Total Protein 7.0 (6.5-8.0) g/dL Albumin 3.7 (3.5-5.0) g/dL Discharge Plan Discharge Clinical Impression: Schizophrenia, Active substance abuse Patient Disposition: Home, Self-Care Instructions: Schizophrenia (ED), Opioid Use Disorder (ED) Additional Instructions: Please follow-up with outpatient providers closely Take medication prescribed Go directly to living room Return if any concerns or worsening symptoms Thank you Prescriptions: No Action trazodone 50 mg tablet 1 tab PO BEDTIME RF: 0 melatonin 3 mg tablet 1 tab PO BEDTIME PRN (Reason: insomnia) RF: 0 (DME) FreeStyle Lite Strips Strip 1 strip MISCELLANEOUS BID RF: 0 (DME) blood-glucose meter [FreeStyle [place] Lite] Kit MISCELLANEOUS NEEDED RF: 0 metformin 1,000 mg tablet 1 tab PO BID RF: 0 alcohol swabs [Alcohol Prep Pads] Pads, Medicated 1 pad topical QWEEK RF: 0 glipizide 5 mg tablet 1 tab PO BID RF: 0 (DME) lancets [FreeStyle Lancets] 28 gauge misc topical DAILY RF: 0 Trulicity 0.75 mg/0.5 mL pen injector 1 mg subcut QWEEK RF: 0 Referrals: Physician,Unknown [Primary Care Provider] - 2 days ([facility] crisis team Primary care doctor)
[2021-04-11 19:00] LABS: MANUAL DIFF FLAG NO
[2021-04-11 19:13] LABS: Basophils Percent Auto 0.1 % (0-2); Eosinophils Percent Auto 0.3 % (0-4); Hematocrit 33.9 % (42-52); Hemoglobin 12.1 g/dl (14.0-18.0); Imm Gran Abs Auto 0.01 X10*3/uL (0.00-0.03); Imm Gran Pct Auto 0.1 % (0.0-0.4); Lymphocytes Absolute Auto 1.8 X10*3/uL (1.2-4.9); Lymphocytes Percent Auto 19.6 % (20-40); Mean Corpuscular HGB Conc 35.7 g/dl (31.0-36.0); Mean Corpuscular Hemoglobin 28.1 pg (27.0-33.0); Mean Corpuscular Volume 78.8 fL (80-98); Mean Platelet Volume 9.1 fL (9.4-12.4); Monocytes Absolute Auto 0.6 X10*3/uL (0.1-1.2); Monocytes Percent Auto 6.3 % (2-11); Neutrophils Absolute Auto 6.8 X10*3/uL (2.0-8.3); Neutrophils Percent Auto 73.6 % (45-73); Platelet Count 349 X10*3/uL (160-400); Red Cell Distribution Width 12.9 % (11.0-16.0); White Blood Count 9.3 X10*3/uL (4.8-10.8)
[2021-04-11 19:28] LABS: Alanine Aminotransferase 24 U/L (0-40); Albumin Level 3.7 g/dL (3.5-5.0); Alkaline Phosphatase 144 U/L (39-117); Anion Gap 11 (12-20); Aspartate Amino Transferase 22 U/L (5-37); Bilirubin Total < 0.2 mg/dL (0.0-1.0); Blood Urea Nitrogen 10 mg/dL (9-16); Calcium 9.2 mg/dL (8.4-10.2); Carbon Dioxide 29 mmol/L (22-29); Chloride 106 mmol/L (96-108); Creatinine Clr Calc Pharmacy 84.9; Estimated Glomerular Filt Rate > 60; Glucose Random 156 mg/dL (60-115); Potassium 4.1 mmol/L (3.3-5.1); Sodium 142 mmol/L (135-145)
--- NOTE | 2021-04-11 19:54 | PC.NURSE ---
[facility] spoke with patient at the bedside. Likely plan for discharge home. Pt continues to deny SI/HI.
[2021-04-11 20:00] VITALS: RESP 16
[2021-04-11 22:00] VITALS: RESP 16
--- NOTE | 2021-04-11 23:40 | PC.NURSE ---
Pt to be transported by ride provided by Care Team in the morning. Cleared for discharge to [facility].
--- NOTE | 2021-04-12 00:29 | MHC.CARE ---
KRISTYN evaluated pt and disposition was to be discharged and go to [facility] as he was approved for an overnight stay today. Unsure as to why pt was not transported there. Nurse reports pt is sleeping and will remain in the ED until tomorrow. CARE team can try to assist with transportation if pt decides to want to go to [facility].
[2021-04-12 06:38] VITALS: BP 108/56; PULSE 76; RESP 17; TEMP 37.3; O2SAT 97
[2021-04-12 06:54] LABS: Glucose, Whole Blood 152 mg/dL (60-115)
--- NOTE | 2021-04-12 07:29 | PC.NURSE ---
patient appears to be at rest at present with even unlabored breaths, appears in no distress
[2021-04-12 07:47] VITALS: BP 108/62; PULSE 80; RESP 15; TEMP 36.6; O2SAT 96
[2021-04-12 09:42] LABS: Glucose Urine UA NEG (NEG); Leukocyte Esterase Urine NEG (NEG); Nitrite Urine NEG (NEG); Specific Gravity - Urine 1.015 (1.005-1.025); Urine Blood NEG (NEG); Urine Ketones 5 MG/DL (NEG); Urine Protein TRACE MG/DL (NEG-TRACE)
[2021-04-12 10:05] LABS: Appearance Urine HAZY; Color Urine YELLOW
[2021-04-12 10:08] LABS: RBC Urine 0 /HPF (0); WBC Urine 0 /HPF (0-4)
[2021-04-12 10:09] LABS: Mucus Urine 1+ /LPF; Sperm Urine NOTED; Squamous Epithelial Cell Urine 1+ /LPF
[2021-04-12 10:23] LABS: Amphetamine Screen Urine Not Detected (Not Detect); Barbiturates, Urine Not Detected (Not Detect); Benzodiazepines Screen Urine Not Detected (Not Detect); Cannabinoid Screen Urine POSITIVE (Not Detect); Cocaine Screen Urine POSITIVE (Not Detect); Opiate Screen Urine POSITIVE (Not Detect); Phencyclidine Screen Urine Not Detected (Not Detect)
[2021-04-12] MEDS: glipiZIDE 5 MG TABLET PO (12:32)
[2021-04-12] MEDS: metFORMIN HCl 1,000 MG TABLET 1000 MG PO (12:33)
== END 2021-04-12 15:21 | disposition home or self-care (01) ==
PROVIDERS: Nurse Practitioner Primary Care; Emergency Provider Internal Medicine
DX: F20.9 Schizophrenia, unspecified (principal); F11.10 Opioid abuse, uncomplicated; E11.9 Type 2 diabetes mellitus without complications; Z79.84 Long term (current) use of oral hypoglycemic drugs; Z79.899 Other long term (current) drug therapy
CPT/HCPCS: 36415; 80053; 80307; 81001; 82947; 85025; 99284; 99285